=== PATIENT | male | born 1965 | race African-American/Black ===

== ENCOUNTER 2021-09-24 08:46 | Emergency (ER) | payer OTHER ==
[~2021-09-24] VITALS: Ht 177.8 cm; Wt 92.0 kg
[2021-09-24 09:10] VITALS: BP 154/85; TEMP 98.2
[2021-09-24] MEDS ORDERED: SYNJARDY 5-1,01 EACH PO (10:58)
[2021-09-24] MEDS ORDERED: CRESTOR20 MG PO (10:58)
[2021-09-24 11:09] VITALS: PULSE 68
== END 2021-09-24 11:09 | disposition home or self-care (01) ==
LOC: COL.ER 08:46
DX: Z76.0 Encounter for issue of repeat prescription (principal)